=== PATIENT | male | born 1960 | race Caucasian/White ===

== ENCOUNTER 2019-01-13 21:23 | Emergency (ER) | payer SELFPAY ==
[~2019-01-13] VITALS: Ht 175.3 cm; Wt 91.0 kg
--- NOTE | 2019-01-13 21:36 | ED.ADGEN ---
Past History Past Medical History: Arthritis Adult General Chief Complaint Chief Complaint ".. I think .. I hurt this knee ... maybe two weeks... ago... but it still hurts really bad... I ve been to [facility].. they said it was arthritis.. [place] did not do anything.... when I went their tonight.. after I twisted and fell on it again to night.. " HPI HPI Patient is a 58 year old male who presents with above hx and complaints Rt knee pain x 2 weeks. Pt. rates pain 02/23. Patient does have a knee brace. Did re- injure knee tonight and has increased swelling. Patient denies any history of fever or chills. Distal neurovascular intact. Patient able to do straight leg lift. Does have collateral ligament tenderness bilaterally. Does have crepitation with range of motion. Patient normally follows at [facility]. No history immunosuppression. No recent travel. No specific ill contacts. Review of Systems Review of Systems Constitutional: Denies fever or chills [] Eyes: Denies change in visual acuity, redness, or eye pain [] HENT: Denies nasal congestion or sore throat [] Respiratory: Denies cough or shortness of breath [] Cardiovascular: No additional information not addressed in HPI [] GI: Denies abdominal pain, nausea, vomiting, bloody stools or diarrhea [] : Denies dysuria or hematuria [] Musculoskeletal: Denies back pain . Complaints of reinjury to right knee. Integument: Denies rash or skin lesions [] Neurologic: Denies headache, focal weakness or sensory changes [] Endocrine: Denies polyuria or polydipsia [] All other systems were reviewed and found to be within normal limits, except as documented in this note. Family History Family History Noncontributory Current Medications Current Medications Current Medications Medications (Trade) Dose Ordered Sig/Cali Start Time Stop Time Status Last Admin Dose Admin Ketorolac Tromethamine (Toradol Im) 60 mg 1X ONCE 01/13/19 22:15 01/13/19 22:16 DC 01/13/19 22:15 60 MG Allergies Allergies Allergies Coded Allergies Type Severity Reaction Last Updated Verified Penicillins Allergy Intermediate Hives 01/13/19 Yes Physical Exam Physical Exam Constitutional: Moderately acute distress, non-toxic appearance. [] HENT: Normocephalic, atraumatic, bilateral external ears normal, oropharynx moist, no oral exudates, nose normal. [] Eyes: PERRLA, EOMI, conjunctiva normal, no discharge. [] Neck: Normal range of motion, no tenderness, supple, no stridor. [] Cardiovascular:Heart rate regular rhythm, no murmur [] Lungs & Thorax: Bilateral breath sounds equal with scattered wheezes on auscultation [] Abdomen: Bowel sounds normal, soft, no tenderness, no masses, no pulsatile masses. [] Skin: Warm, dry, no erythema, no rash. [] Back: No tenderness, no CVA tenderness. [] Extremities: No tenderness, no cyanosis, no clubbing, ROM intact, no edema. [] Except findings in HPI. Neurologic: Alert and oriented X 3, normal motor function, normal sensory function, no focal deficits noted. [] Psychologic: Affect anxious, judgement normal, mood normal. [] Current Patient Data Vital Signs Vital Signs Date Time Temp Pulse Resp B/P (MAP) Pulse Ox O2 Delivery O2 Flow Rate FiO2 01/13/19 22:50 87 18 136/74 (94) 97 Room Air 01/13/19 21:23 97.8 EKG EKG [] Radiology/Procedures Radiology/Procedures My interpretation of right knee film shows edema. No obvious fracture dislocation. There is some degenerative joint changes.[] Course & Med Decision Making Course & Med Decision Making Pertinent Labs and Imaging studies reviewed. (See chart for details). Patient use ice packs as needed. Rest. Patient elevate leg. Patient to wear splint. Patient take Tylenol and ibuprofen for pain. For marked pain patient may take Vicoprofen up 4 times a day. Patient follow-up primary care. Patient return of any concerns. May eventually need MRI or scope peak evaluation with orthro follow up. [] Final Impression Final Impression 1. Knee Pain Rt.[]-sprain strain 2. Degenerative joint changes. Dragon Disclaimer Dragon Disclaimer This electronic medical record was generated, in whole or in part, using a voice recognition dictation system. Discharge Summary Visit Information Final Diagnosis Problems Medical Problems: (1) Knee sprain Status: Acute (2) Knee strain Status: Acute Brief Hospital Course Allergies Allergies Coded Allergies Type Severity Reaction Last Updated Verified Penicillins Allergy Intermediate Hives 01/13/19 Yes Vital Signs Vital Signs Date Time Temp Pulse Resp B/P (MAP) Pulse Ox O2 Delivery O2 Flow Rate FiO2 01/13/19 22:50 87 18 136/74 (94) 97 Room Air 01/13/19 21:23 97.8 Brief Hospital Course Mr. Prasad is a 58 old male who presented with Rt knee injury. Discharge Information Condition at Discharge: Improved Disposition/Orders: D/C to Home Dischare Medications Current Medications Ketorolac Tromethamine (Toradol Im) 60 mg 1X ONCE IM Last administered on 01/13/19at 22:15; Admin Dose 60 MG; Start 01/13/19 at 22:15; Stop 01/13/19 at 22:16; Status DC Active Scripts Active Hydrocodone-Ibuprofen 7.5-200 (Hydrocodone/Ibuprofen) 1 Each Tablet 1 Tab PO PRN Q6HRS PRN Dragon Disclaimer This chart was dictated in whole or in part using Voice Recognition software in a busy, high-work load, and often noisy Emergency Department environment. It may contain unintended and wholly unrecognized errors or omissions. ROSALBA NEWELL MD Jan 13, 2019 21:36
[2019-01-13] MEDS ORDERED: KETOROLAC 60 MG/2 ML VIAL. IM ONE (22:15)
[2019-01-13] MEDS ORDERED: HYDR-1179 PO (22:37)
[2019-01-13 22:50] VITALS: BP 136/74
--- NOTE | 2019-01-14 08:08 | RAD ---
KNEE RIGHT 4V 01/13/2019 9:38 PM INDICATION: Right knee pain COMPARISON: None available. TECHNIQUE: 4 views of the right knee are provided. FINDINGS: There is no acute fracture or dislocation. There is a small knee joint effusion. Bone mineralization is within normal limits. Joint spaces are maintained. Regional soft tissues are within normal limits. There is no soft tissue gas or osseous erosion. IMPRESSION: No acute fracture or dislocation. Small knee joint effusion. Electronically signed by: Petrona Sanders MD (01/14/2019 8:05 AM) [id number]
== END 2019-01-13 22:50 | disposition home or self-care (01) ==
LOC: ER 21:23
DX: S83.91XA Sprain of unspecified site of right knee, initial encounter (principal); M17.11 Unilateral primary osteoarthritis, right knee; Z88.0 Allergy status to penicillin; X58.XXXA Exposure to other specified factors, initial encounter; Y93.89 Activity, other specified; Y92.89 Other specified places as the place of occurrence of the external cause; Y99.8 Other external cause status
CPT/HCPCS: 73564; 96372; 99284; J1885